=== PATIENT | male | born 1995 | race Caucasian/White ===

== ENCOUNTER 2022-03-29 04:29 | Emergency (ER) | payer SELFPAY ==
[2022-03-29 04:44] VITALS: RESP 18; BMI 30.1
[2022-03-29] MEDS ORDERED: MAG HYDROX/AL HYDROX/SIMETH 30 ML UNIT-DOSE CUP PO ONE (07:37)
[2022-03-29] MEDS ORDERED: FAMOTIDINE 20 MG/50 ML IVPB 20 MG/50 ML MG IVPB ONE ×2 (07:37→07:47)
[2022-03-29] MEDS ORDERED: SODIUM CHLORIDE 0.9% 500 ML INFUS.BAG IV ONE (07:37)
[2022-03-29] MEDS ORDERED: MAG HYDROX/AL HYDROX/SIMETH 30 ML UNIT-DOSE CUP ONE (07:46)
[2022-03-29 07:56] LABS: BASO % 0.4 % (0-2.0); EOS % 0.1 % (0-4.5); HEMATOCRIT 45.8 % (35.4-49); HEMOGLOBIN 15.7 GM/dL (11.7-16.9); LYMPH % 11.6 % (8-40); MCH 28.6 pg (25.7-33.7); MCHC 34.2 g/dl (32.0-35.9); MEAN CELL VOLUME 83.5 fl (80-96); MEAN PLT VOLUME 8.3 fl (7.5-11.1); MONO % 5.6 % (3.8-10.2); NEUT % 82.3 % (42.8-82.8); PLATELET COUNT 210 10^3/uL (134-434); RBC 5.48 M/mm3 (4.00-5.60); RDW 13.3 % (11.9-15.9); WHITE BLOOD COUNT 9.7 K/mm3 (4.0-10.0)
[2022-03-29 08:38] LABS: ALBUMIN 4.2 g/dl (3.4-5.0); BLOOD UREA NITROGEN 18.2 mg/dL (7-18); CALCIUM 9.7 mg/dL (8.5-10.1)
[2022-03-29 08:40] LABS: CREATININE 0.8 mg/dL (0.55-1.3)
[2022-03-29 08:42] LABS: BILIRUBIN,TOTAL 0.8 mg/dL (0.2-1)
[2022-03-29 09:41] LABS: URINE APPEARANCE CLOUDY; URINE BILIRUBIN NEGATIVE (NEGATIVE); URINE COLOR YELLOW; URINE GLUCOSE (UA) NEGATIVE (NEGATIVE); URINE KETONE NEGATIVE (NEGATIVE); URINE LEUK ESTERASE NEGATIVE (NEGATIVE); URINE NITRITE NEGATIVE (NEGATIVE); URINE PROTEIN NEGATIVE (NEGATIVE)
[2022-03-29 13:14] VITALS: BP 142/83; PULSE 64; TEMP 97.4
== END 2022-03-29 13:47 | disposition home or self-care (01) ==
LOC: JER 04:29
PROC: 3E033GC Introduction of Other Therapeutic Substance into Peripheral Vein, Percutaneous Approach (ICD-10-PCS; principal; 2022-03-29)
DX: K80.20 Calculus of gallbladder without cholecystitis without obstruction (principal)
CPT/HCPCS: 36415; 76705-TC; 80053; 81003; 83690; 85025; 87086; 93005; 93010; 99285-25

== ENCOUNTER 2022-08-25 02:22 | Emergency (ER) | payer SELFPAY ==
[2022-08-25 02:43] VITALS: BP 146/97; PULSE 62; RESP 18; TEMP 97.8; BMI 28.5
== END 2022-08-25 04:20 | disposition home or self-care (01) ==
LOC: JER 02:22
DX: R10.11 Right upper quadrant pain (principal); K80.50 Calculus of bile duct without cholangitis or cholecystitis without obstruction
CPT/HCPCS: 99283-25

== ENCOUNTER 2022-10-05 13:27 | Day surgery (SDC) | payer OTHER ==
[2022-10-05] MEDS ORDERED: SODIUM CHLORIDE 1,000 ML IV STA ×2 (14:45→16:52)
[2022-10-05] MEDS ORDERED: ACETAMINOPHEN 1000 MG/100 ML BAG IVPB ONE (14:45)
[2022-10-05] MEDS ORDERED: FAMOTIDINE 20 MG/50 ML IVPB 20 MG/50 ML MG IVPB ONE (14:45)
[2022-10-05] MEDS ORDERED: ACETAMINOPHEN INJECTION 100 ML IVPB ONE (15:01)
[2022-10-05] MEDS ORDERED: FAMOTIDINE 10 MG/ML VIAL IVPB ONE (15:02)
[2022-10-05 15:52] LABS: BASO % 0.4 % (0-2.0); EOS % 0.7 % (0-4.5); HEMATOCRIT 44.8 % (35.4-49); HEMOGLOBIN 15.5 GM/dL (11.7-16.9); LYMPH % 24.3 % (8-40); MCH 28.3 pg (25.7-33.7); MCHC 34.5 g/dl (32.0-35.9); MEAN CELL VOLUME 82.1 fl (80-96); MEAN PLT VOLUME 8.2 fl (7.5-11.1); MONO % 5.9 % (3.8-10.2); NEUT % 68.7 % (42.8-82.8); PH,URINE 5.5 (5.0-8.0); PLATELET COUNT 200 10^3/uL (134-434); RBC 5.46 M/mm3 (4.00-5.60); URINE APPEARANCE CLEAR; URINE BILIRUBIN NEGATIVE (NEGATIVE); URINE COLOR YELLOW; URINE GLUCOSE (UA) NEGATIVE (NEGATIVE); URINE KETONE NEGATIVE (NEGATIVE); URINE LEUK ESTERASE NEGATIVE (NEGATIVE); URINE NITRITE NEGATIVE (NEGATIVE); URINE PROTEIN NEGATIVE (NEGATIVE); URINE UROBILINOGEN 0.2 mg/dL (0.2-1.0); WHITE BLOOD COUNT 7.1 K/mm3 (4.0-10.0)
[2022-10-05 15:57] LABS: INR 1.01 (0.83-1.09); PROTHROMBIN TIME (PATIENT) 11.7 SEC (9.7-13.0)
[2022-10-05 16:00] LABS: ACTIVATED PTT 30.2 SECONDS (25.2-36.5)
[2022-10-05 16:31] LABS: POTASSIUM 4.2 mmol/L (3.5-5.1)
[2022-10-05 16:33] LABS: CALCIUM 9.4 mg/dL (8.5-10.1)
[2022-10-05 16:34] LABS: ALBUMIN 4.4 g/dl (3.4-5.0); BLOOD UREA NITROGEN 11.6 mg/dL (7-18)
[2022-10-05 16:36] LABS: CREATININE 0.8 mg/dL (0.55-1.3)
[2022-10-05 16:38] LABS: BILIRUBIN,TOTAL 0.6 mg/dL (0.2-1)
[2022-10-05 16:40] LABS: TOT PROT 8.1 g/dl (6.4-8.2)
[2022-10-05] MEDS ORDERED: PIPERACILLIN/TAZOB 3.375 GM 3.375 GM in DEXTROSE 5%-WATER - 50 ML IVPB ONE (16:49)
[2022-10-05] MEDS ORDERED: PIPERACILLIN/TAZOB 3.375 GM 3.375 GM/50 ML BAG IVPB ONE (17:02)
[2022-10-05] MEDS ORDERED: ACETAMINOPHEN 1000 MG/100 ML BAG IVPB PRN (19:05)
[2022-10-05] MEDS ORDERED: ONDANSETRON 4 MG/2 ML VIAL IVPUSH PRN (19:14)
[2022-10-05] MEDS ORDERED: LACTATED RINGERS SOLUTION 1000 ML INFUS.BAG IV ONE (19:15)
[2022-10-05 21:13] VITALS: BMI 27.4
[2022-10-06] MEDS: PIPERACILLIN/TAZOB 4.5 GM 4.5 GM in DEXTROSE 5%-WATER 100 ML IVPB SCH ×3 (01:36→18:23)
[2022-10-06 10:43] LABS: HEMATOCRIT 43.2 % (35.4-49); HEMOGLOBIN 14.8 GM/dL (11.7-16.9); MCH 28.8 pg (25.7-33.7); MCHC 34.3 g/dl (32.0-35.9); MEAN CELL VOLUME 83.9 fl (80-96); PLATELET COUNT 185 10^3/uL (134-434); RBC 5.15 M/mm3 (4.00-5.60); RDW 12.9 % (11.9-15.9); WHITE BLOOD COUNT 5.2 K/mm3 (4.0-10.0)
[2022-10-06 10:58] LABS: POTASSIUM 3.9 mmol/L (3.5-5.1)
[2022-10-06 11:00] LABS: CALCIUM 9.5 mg/dL (8.5-10.1)
[2022-10-06 11:02] LABS: BLOOD UREA NITROGEN 8.4 mg/dL (7-18); MAGNESIUM 2.4 mg/dL (1.8-2.4)
[2022-10-06 11:04] LABS: CREATININE 0.7 mg/dL (0.55-1.3); PHOSPHOROUS 3.3 mg/dL (2.5-4.9)
[2022-10-06 11:05] LABS: BILIRUBIN,TOTAL 0.8 mg/dL (0.2-1); TOT PROT 7.5 g/dl (6.4-8.2)
[2022-10-06] MEDS ORDERED: BUPIVACAINE HCL/PF 0.5% (5MG/ML) 10 ML VIAL ONE ×2 (12:04→16:44)
[2022-10-06] MEDS ORDERED: BUPIVACAINE HCL/PF 0.25% (2.5MG/ML) 10 ML VIAL ONE (13:57)
[2022-10-06] MEDS ORDERED: LIDOCAINE HCL 1%, 10 MG/ML (10ML VIAL) MDV ONE (16:44)
[2022-10-06] MEDS ORDERED: PIPERACILLIN/TAZOBACTAM 4.5 GM VIAL IVPB ONE ×2 (16:47→18:00)
[2022-10-06] MEDS ORDERED: LIDOCAINE HCL 1%, 10 MG/ML (20ML VIAL) NR ONE ×2 (16:47→17:23)
[2022-10-06] MEDS ORDERED: BUPIVACAINE HCL/PF 0.5% (5MG/ML) 10 ML VIAL IJ ONE ×3 (16:48→17:23)
[2022-10-06] MEDS ORDERED: PROPOFOL 20 ML ONE (16:58)
[2022-10-06] MEDS ORDERED: SUCCINYLCHOLINE CHLORIDE 200 MG/10 ML SYRINGE ONE (16:58)
[2022-10-06] MEDS ORDERED: MIDAZOLAM HCL 2 MG/2 ML SINGLE DOSE VIAL ONE (16:58)
[2022-10-06] MEDS ORDERED: ROCURONIUM BROMIDE 50 MG/5 ML SYRINGE ONE (17:12)
[2022-10-06] MEDS ORDERED: KETOROLAC TROMETHAMINE 30 MG/1 ML VIAL ONE (17:15)
[2022-10-06] MEDS ORDERED: DEXAMETHASONE SOD PHOSPHATE 4 MG/1 ML VIAL ONE (17:15)
[2022-10-06] MEDS ORDERED: ONDANSETRON 4 MG/2 ML VIAL ONE (17:15)
[2022-10-06] MEDS ORDERED: SUGAMMADEX SODIUM 200 MG/2 ML VIAL ONE (17:20)
[2022-10-06] MEDS ORDERED: LACTATED RINGERS SOLUTION 1,000 ML IV SCH ×2 (18:30→18:40)
[2022-10-06] MEDS ORDERED: oxyCODONE HCL 5 MG TABLET PO PRN ×3 (18:36→18:40)
[2022-10-06] MEDS ORDERED: ONDANSETRON 4 MG/2 ML VIAL IVPUSH PRN (18:40)
[2022-10-06] MEDS ORDERED: ACETAMINOPHEN INJECTION 100 ML IVPB ONE (18:53)
[2022-10-06] MEDS: ACETAMINOPHEN 1000 MG/100 ML BAG IVPB SCH (19:04)
[2022-10-06] MEDS: THIAMINE HCL 100 MG TABLET (FP) PO SCH (20:47)
[2022-10-07] MEDS: ACETAMINOPHEN 1000 MG/100 ML BAG IVPB SCH ×2 (02:17→13:22)
[2022-10-07] MEDS ORDERED: IBUPROFEN 600 MG TABLET (FP) PO PRN (02:30)
[2022-10-07 03:27] VITALS: RESP 18
[2022-10-07 08:59] LABS: BASO % 0.1 % (0-2.0); HEMATOCRIT 43.1 % (35.4-49); HEMOGLOBIN 14.8 GM/dL (11.7-16.9); LYMPH % 8.7 % (8-40); MCH 28.5 pg (25.7-33.7); MCHC 34.5 g/dl (32.0-35.9); MEAN CELL VOLUME 82.6 fl (80-96); MEAN PLT VOLUME 8.7 fl (7.5-11.1); MONO % 4.9 % (3.8-10.2); NEUT % 86.3 % (42.8-82.8); PLATELET COUNT 185 10^3/uL (134-434); RBC 5.21 M/mm3 (4.00-5.60); RDW 12.9 % (11.9-15.9); WHITE BLOOD COUNT 9.9 K/mm3 (4.0-10.0)
[2022-10-07 09:05] LABS: ALBUMIN 3.8 g/dl (3.4-5.0); CALCIUM 9.4 mg/dL (8.5-10.1)
[2022-10-07 09:06] LABS: BLOOD UREA NITROGEN 11.3 mg/dL (7-18)
[2022-10-07 09:08] LABS: CREATININE 0.7 mg/dL (0.55-1.3)
[2022-10-07 09:10] LABS: BILIRUBIN,TOTAL 0.9 mg/dL (0.2-1); TOT PROT 7.3 g/dl (6.4-8.2)
[2022-10-07] MEDS: THIAMINE HCL 100 MG TABLET (FP) PO SCH (09:41)
[2022-10-07] MEDS ORDERED: FOLIC ACID 1 MG TABLET (FP) PO SCH (10:00)
[2022-10-07 14:36] VITALS: BP 121/71; PULSE 78; TEMP 98.4
== END 2022-10-07 15:04 | disposition home or self-care (01) ==
LOC: JER 13:27 → INTOOBSV 17:04 → UNDOADMOB 17:04 → JERBED 17:04 → UNDOADMOB 18:58 → JERBED 18:58 → J8W 20:20 → SUATTDRO 10-06 10:44 → JASUSAT 10-06 10:44 → J8W 10-06 10:52 → JASUSAT 10-07 15:04
PROVIDERS: ATTEND Internal Medicine
PROC: 0FT44ZZ Resection of Gallbladder, Percutaneous Endoscopic Approach (ICD-10-PCS; principal; 2022-10-06 13:30)
DX: K80.10 Calculus of gallbladder with chronic cholecystitis without obstruction (principal)
CPT/HCPCS: 36415; 76705-TC; 80053; 81003; 83690; 83735; 84100; 84478; 85025; 85027; 85610; 85730; 86850; 86900; 86901; 87086; 88304-TC; 93005; 93010; 94760; 99285-25